=== PATIENT | male | born 1990 | race Caucasian/White ===

== ENCOUNTER 2023-07-21 12:49 | Emergency (ER) | payer SELFPAY ==
[2023-07-21] MEDS ORDERED: Lactated Ringers 1,000 ML IV SCH (13:45)
[2023-07-21 13:47] LABS: BASOPHILS PERCENT AUTO 0.2 % (0.0-1.0); EOSINOPHILS ABSOLUTE AUTO 0.1 K/mm3 (0.0-0.4); EOSINOPHILS PERCENT AUTO 1.3 % (0.0-6.0); HEMATOCRIT 52.6 % (42.0-52.0); HEMOGLOBIN 17.5 gm/dl (14.0-18.0); IMMATURE GRAN ABSOLUTE AUTO 0.04 K/mm3 (0.00-0.05); IMMATURE GRAN PERCENT AUTO 0.5 % (0.0-0.4); LYMPHOCYTES ABSOLUTE AUTO 1.4 K/mm3 (1.0-4.8); LYMPHOCYTES PERCENT AUTO 15.6 % (24.0-44.0); MEAN CORPUSCULAR HEMOGLOBIN 28.6 pg (28.0-32.0); MEAN CORPUSCULAR HGB CONC 33.3 g/dl (32.0-36.0); MEAN CORPUSCULAR VOLUME 85.9 fl (83.0-99.0); MEAN PLATELET VOLUME 9.9 fl (9.4-12.4); MONOCYTES ABSOLUTE AUTO 0.5 K/mm3 (0.0-0.8); MONOCYTES PERCENT AUTO 5.4 % (0.0-8.0); NEUTROPHILS ABSOLUTE AUTO 6.7 K/mm3 (1.8-7.7); PLATELET COUNT,PLT 293 K/mm3 (150-400); RED BLOOD CELL COUNT 6.12 M/mm3 (4.52-5.90); WHITE BLOOD CELL COUNT,WBC 8.73 K/mm3 (3.9-11.3)
[2023-07-21] MEDS ORDERED: hydrOXYzine HCl 50 MG Tab PO ONE (13:47)
[2023-07-21 14:05] LABS: A/G RATIO 1.2 (1-2); ALBUMIN 4.6 g/dl (3.4-5.0); ANION GAP 16.5 (5-15); BILIRUBIN TOTAL 0.8 mg/dL (0.2-1.0); CALCIUM 9.6 mg/dL (8.5-10.1); CREATININE 1.1 mg/dL (0.7-1.3); EST CRCL DRUG DOSING (CG) 105.93 mL/min; POTASSIUM,K 3.5 mEq/L (3.5-5.1); PROTEIN TOTAL,TP 8.4 g/dl (6.4-8.2)
[2023-07-21] MEDS ORDERED: Metoprolol Succinate 25 MG Tab.ER PO ONE (15:52)
== END 2023-07-21 16:15 | disposition home or self-care (01) ==
LOC: JD.ED 12:49
DX: F41.9 Anxiety disorder, unspecified (principal); F17.210 Nicotine dependence, cigarettes, uncomplicated; Z88.1 Allergy status to other antibiotic agents; Z88.2 Allergy status to sulfonamides
CPT/HCPCS: 36415; 80053; 84484; 85025; 93005; 96360; 99285; A9270; J7120; 93010; 99284